=== PATIENT | female | born 1985 | race Caucasian/White ===

== ENCOUNTER → 2016-05-31 | Outpatient (CLI) | payer OTHER | END | disposition home or self-care (01) | LOC: C.LABSPEC 15:51 | PROVIDERS: ATTEND Nurse Practitioner Adult Health | DX: J02.9 Acute pharyngitis, unspecified (principal) ==

== ENCOUNTER → 2016-06-09 | Outpatient (CLI) | payer OTHER ==
[2016-06-09 13:14] LABS: BASO % 0.5 %; BASO ABS # 0.03 K/uL (0-0.2); COMPLETE YES; EOS % 2.8 %; IG% 0.2 %; LYMPH % 35.1 %; LYMPH ABS # 2.15 K/uL (1.2-3.4); MEAN CELL VOLUME 88.9 fL (80-100); MEAN CORPUSCULAR HGB CONC 33.8 g/dl (32-36); MEAN PLATELET VOLUME 11.2 fL (7.4-10.4); MONO % 6.9 %; NEUT % 54.5 %; PLATELET COUNT 258 K/uL (130-400); WHITE BLOOD COUNT 6.13 K/uL (4.8-10.8)
[2016-06-09 13:19] LABS: ALT/SGPT 26 U/L (12-78); BLOOD UREA NITROGEN 7 mg/dl (7-18); BUN/CREATININE RATIO 11.4 (10-20); CALCIUM 8.7 mg/dl (8.5-10.1); CARBON DIOXIDE 27 mmol/L (21-32); CHLORIDE 106 mmol/L (98-107); CHOLESTEROL 182 mg/dl (0-200); CREATININE 0.65 mg/dl (0.60-1.20); GLUCOSE 80 mg/dl (70-99); POTASSIUM 3.8 mmol/L (3.5-5.1); SODIUM 140 mmol/L (136-145)
[2016-06-09 13:32] LABS: ALB/GLOB RATIO 1.3 (0.9-2); ALKALINE PHOSPHATASE 57 U/L (45-117); AST/SGOT 15 U/L (15-37); CHOLESTEROL/HDL RATIO 2.9; HDL CHOLESTEROL 62 mg/dl; LDL CHOLESTEROL CALCULATED 107 mg/dl; TRIGLYCERIDES 66 mg/dl (0-150); VERY LOW DENSITY LIPOPROT CALC 13 mg/dl
== END | disposition home or self-care (01) ==
LOC: C.LAB 11:16
PROVIDERS: ATTEND Nurse Practitioner Adult Health
DX: G43.909 Migraine, unspecified, not intractable, without status migrainosus (principal); R53.83 Other fatigue

== ENCOUNTER → 2016-07-26 | Outpatient (CLI) | payer OTHER | END | disposition home or self-care (01) | LOC: C.PAPS 09:24 | PROVIDERS: ATTEND Physician Assistant | DX: Z01.419 Encounter for gynecological examination (general) (routine) without abnormal findings (principal) ==

== ENCOUNTER → 2016-07-31 | Outpatient (CLI) | payer OTHER | END | disposition home or self-care (01) | LOC: C.LAB 08:23 | PROVIDERS: ATTEND Physician Assistant | DX: Z80.41 Family history of malignant neoplasm of ovary (principal) ==